=== PATIENT | male | born 1965 | race Caucasian/White ===

== ENCOUNTER 2020-04-06 16:38 | Emergency (ER) | payer MEDICARE, MEDICAID, SELFPAY ==
[2020-04-06 16:39] VITALS: BP 171/101; PULSE 116; RESP 18; TEMP 36.8; O2SAT 96; BMI 21.5
--- NOTE | 2020-04-06 17:29 | ED.VIS.GEN ---
History of Present Illness Chief Complaint: Fall Narrative: Patient fell down a hill about 5 to 7 days ago he does not quite remember since he was under the influence of alcohol, since then he has been in [facility] and got released yesterday. He denies current alcohol consumption since he has an alcohol bracelet on, he denies head injury denies loss of consciousness denies neck pain. Past Medical History - Allergies and Home Meds Allergies/Adverse Reactions: Allergies No Known Allergies Allergy (Verified 04/06/20 16:43) Primary Care Physician: Care Physician,No Primary [Primary Care Provider] - 2 Days Past Medical History: None Review of Systems General: Denies: Fever Eyes: Denies: Visual changes - bilaterally ENT: Denies: Sore throat Cardiovascular: Reports: Chest pain Respiratory: Denies: Dyspnea, Cough Gastrointestinal: Denies: Abdominal pain, Nausea, Vomiting Musculoskeletal: Denies: Myalgias Skin: Denies: Rash Neurological: Denies: Headache Hematologic: Denies: Easy bruising Physical Exam Vital Signs/Narrative: Vital Signs Temp Pulse Resp BP Pulse Ox 04/06/20 16:39 98.3 F 116 H 18 171/101 H 96 General: - - Patient has unremarkable vitals other than slight tachycardia, he is lucid coherent he has no tremors or shakes. ENT: Moist mucous membranes Cardiovascular: Regular rate, Regular rhythm, No murmurs Respiratory: Chest tenderness, - - He has right lower rib tenderness to palpation but no step-offs no obvious contusion seen. His lungs are clear Abdomen: Soft, Nontender Back: Nontender, Normal Inspection. Negative for: CVA tenderness Extremities: Nontender, No edema Skin: Normal color Neurological: Alert, Oriented x3, Normal Strength Psychological: Normal affect Diagnostic/Tx/Re-eval - Medical Decision Making Patient has a normal x-ray. No evidence of fracture. He will be treated with analgesia otherwise will be discharged in stable condition. He is denying any withdrawing symptoms at this time, and he tells me he does not think he will have a problem with withdraw, but if he does feel shaky or anxious or any worse he is to return. ED Disposition - Plan for ED Patient: Disposition: Home or Assisted Living Diagnosis: Rib contusion Instructions: ED CONTUSION Rib Prescriptions: Hydrocodone Bitart/Apap 5-325 [[place] 5MG-325MG] 1 tab PO Q4H PRN PRN 2 Days #10 tab PRN Reason: Pain Prescription Printed Referrals: Care Physician,No Primary [Primary Care Provider] - 2 Days
--- NOTE | 2020-04-06 17:35 | RAD_ITS ---
STUDY: X-RAY - UNILATERAL RIBS ( RIGHT ) WITH CHEST REASON FOR EXAM: Male, 54 years old. fall 5-7 days ago, pain TECHNIQUE - RIBS: 4 view(s) of the ribs. TECHNIQUE - CHEST: Single frontal view of the chest. COMPARISON: None. FINDINGS - RIBS: Normal visualized ribs without a demonstrated fracture. FINDINGS - CHEST: The lungs are clear and expanded. There is no demonstrated pleural abnormality. Normal size heart. Normal mediastinum and jen. Normal visualized pulmonary arteries. Normal visualized aortic arch and descending thoracic aorta. Normal visualized thoracic spine. Normal visualized ribs, clavicles, and shoulders. There is no demonstrated abnormality of the visualized soft tissue structures of the upper abdomen. RAD/Ribs Uni Min 3V w/PA Chest IMPRESSION: RIBS: Normal x-ray examination of the ribs. CHEST: Normal x-ray examination of the chest. Electronically Signed: Jan Eid MD at 18:23 EDT , Service support ,
[2020-04-06 19:01] VITALS: BP 142/79; PULSE 79; RESP 18; O2SAT 97
--- NOTE | 2020-04-06 19:02 | ED.RN ---
THIS NURSE REVIEWED D/C INSTRUCTIONS WITH PT. PT VERBALIZED UNDERSTANDING OF INSTRUCTIONS. PT DENIES FURTHER NEEDS OR QUESTIONS AT THIS TIME. PT AMBULATES FROM ROOM ON OWN WITHOUT ASSISTANCE FROM STAFF
== END 2020-04-06 19:03 | disposition home or self-care (01) ==
PROVIDERS: Emergency Provider Emergency Medicine
DX: S20.219A Contusion of unspecified front wall of thorax, initial encounter (principal); W17.81XA Fall down embankment (hill), initial encounter; Y93.9 Activity, unspecified; Y92.9 Unspecified place or not applicable; Y99.9 Unspecified external cause status
CPT/HCPCS: 71101; 99282